=== PATIENT | male | born 1975 | race Caucasian/White ===

== ENCOUNTER 2021-07-21 19:17 | Emergency (ER) | payer BC, OTHER | END 2021-07-21 20:32 | disposition home or self-care (01) | LOC: JP.ED 19:17 | DX: S60.222A Contusion of left hand, initial encounter (principal); Z87.891 Personal history of nicotine dependence; W22.09XA Striking against other stationary object, initial encounter; Y93.64 Activity, baseball | CPT/HCPCS: 73130-LT; 99282; 99283-25 ==